=== PATIENT | female | born 1940 | race Caucasian/White ===

== ENCOUNTER 2019-04-15 02:38 | Observation (INO) | payer OTHER ==
[~2019-04-15] VITALS: Ht 154.9 cm; Wt 63.5 kg
[2019-04-15 02:47] VITALS: Ht 154.9 cm; Wt 63.5 kg
--- NOTE | 2019-04-15 03:16 | NUR ---
PT PRESENTS TO ED WITH C/O VOMITING TODAY. PT STATES THAT SHE HAS BEEN FEELING GENERALLY UNWELL FOR 3 WKS SINCE HER PSYCHIATRIST PUT HER ON 3 NEW MEDICATIONS FOR ANXIETY. PT STATES THAT TODAY EVERY TIME SHE TRIED TO TAKE HER MEDICATION SHE VOMITED. PT STATES TO MID ABDOMINAL PAIN, AND BURNING WHEN SHE URINATES. PT DENIES DIARRHEA. PT AMBULATED WITH STEADY GAIT TO PROVIDE URINE SPECIMEN. PT AOX4, RESP EVEN AND UNLABORED, NO ACUTE DISTRESS NOTED. PT SIGNIFICANT OTHER AT BEDSIDE.
[2019-04-15 03:59] LABS: microscopic required? YES; urine erythrocyte 1+ (NEGATIVE)
[2019-04-15 04:00] LABS: BASOPHIL % 0.2 % (0-2); PLATELET COUNT 331 x10^3mcL (130-400); RED CELL DISTRIBUTION WIDTH 12.7 % (11.5-14.5)
[2019-04-15 04:02] LABS: CALCIUM 8.5 mg/dL (8.5-10.1); CARBON DIOXIDE 24.2 mmol/L (21-32); CHLORIDE SERUM 93 mmol/L (98-107); CREATININE SERUM 0.7 mg/dL (0.6-1.0); GLUCOSE SERUM 136 mg/dL (74-106); POTASSIUM SERUM 3.9 mmol/L (3.5-5.1); SODIUM SERUM 126 mmol/L (136-145)
[2019-04-15 04:06] LABS: ALBUMIN 3.7 g/dL (3.4-5.0); ALKALINE PHOSPHATASE 84 U/L (46-116); ALT/SGPT 22 U/L (14-59); AST/SGOT 15 U/L (15-37); BILIRUBIN TOTAL 0.69 mg/dL (0.20-1.00); TOTAL PROTEIN, SERUM 7.2 g/dL (6.4-8.2)
--- NOTE | 2019-04-15 04:11 | NUR ---
PT RESTING IN A POSITION OF COMFORT, AOX4, RESP EVEN AND UNLABORED, NO ACUTE DISTRESS NOTED. PT ON FULL CM.
[2019-04-15] MEDS ORDERED: LOVASTATIN40 MG PO (04:59)
[2019-04-15] MEDS ORDERED: TRILEPTAL150 MG PO (05:01)
[2019-04-15] MEDS ORDERED: GABAPENTIN100 M2 PO (05:01)
[2019-04-15] MEDS ORDERED: CLONAZEPAM0.5 MG PO (05:01)
[2019-04-15] MEDS ORDERED: LEVOTHYROXINE0.1 M2 PO (05:01)
[2019-04-15] MEDS ORDERED: NOR10 PO (05:02)
[2019-04-15] MEDS ORDERED: LOSARTAN POTASS1 TA8 PO (05:02)
--- NOTE | 2019-04-15 05:03 | NUR ---
PER VERENICE RICHARDSON FOR PT TO TAKE HOME LEVOTHYROXINE.
--- NOTE | 2019-04-15 05:47 | NUR ---
PT REPORT CALLED TO APRIL MAKI TO ASSUME PT CARE.
--- NOTE | 2019-04-15 06:10 | NUR ---
PT TRANSFERRED TO 219A BY REYES BY MYSELF AND DILSHAD MAKI. PT ON CM FOR TRANSFER. PT AOX4, RESP EVEN AND UNLABORED, NO ACUTE DISTRESS NOTED. PT ACCEPTED BY APRIL MAKI TO ASSUME PT CARE. PT AMBULATED FROM [facility] TO BED WITHOUT INCIDENT.
[2019-04-15 06:37] VITALS: BP 142/59
--- NOTE | 2019-04-15 07:30 | NUR ---
RECEIVED PATIENT ALERT/ORIENTED X4. C/O NAUSEA AND VOMITING SINCE YESTERDAY. TELE#20, SR; HR 75. NO RESP DISTRESS ON RA. O2 SAT 98% ON RA. DENIED ABD PAIN. BUT C/O NAUSEA. HAD DIARRHEA X4 LAST NIGHT. VOID VIA BRP, C/O BURNING OF URINATION. IVF OF NS 80CC/HR. IV SITE TO LAC INTACT. AMBULATORY. CALL LIGHT IN REACH.
--- NOTE | 2019-04-15 08:17 | NUR ---
C/O NAUSEA. HAD 30% OF REGULAR DIET BREAKFAST. ZOFRAN 4MG IVP GIVEN. CONTINUE MONITOR.
[2019-04-15 09:10] VITALS: BP 151/54
--- NOTE | 2019-04-15 09:25 | NUR ---
PATIENT NAUSEA AND VOMITED 150CC OF BREAKFAST. ORAL MEDS HOLD AND PAGED DR. FREIRE.
--- NOTE | 2019-04-15 09:42 | NUR ---
ZOFRAN 4MG IVP GIVEN AT 0817; PATIENT STILL NAUSEA AND VOMITING. DR. FREIRE CALLED. DR. FREIRE SAID KEPT B/P OF THIS PATIENT OVER 240 mmHG. I REPORTED TO DR. FREIRE WITH PATIENT'S B/P = 151/54 NOW. HE ANSWERED B/P =151 WAS TOO LOW FOR THIS PATIENT. PATIENT WAS VOMITING AND UNABLE TO TAKE ORAL MEDS. DR. FREIRE AWARE OF.
--- NOTE | 2019-04-15 11:16 | NUR ---
PATIENT HAVING INTRACTABLE N/V. DENIED ABD PAIN. NEW ORDER OF REGLAN 10MG IVP GIVEN. CONTINUEONITOR.
--- NOTE | 2019-04-15 12:09 | NUR ---
STATED NAUSEA SUBSIDING. NO VOMITING FOR 1 HR. ORAL MEDS GIVEN.
[2019-04-15 12:41] VITALS: BP 154/61
--- NOTE | 2019-04-15 13:00 | NUR ---
DR. LÓPEZ CAME TO SEE PATIENT. NEW ORDER WRITTEN.
--- NOTE | 2019-04-15 15:33 | NUR ---
HAD 20% OF FULL LIQUID DIET LUNCH. PATIENT HAD NAUSEA/ VOMITED AGAIN. 400CC MEASURED. PHENERGAN 12.5MG IVP GIVEN.
--- NOTE | 2019-04-15 15:37 | NUR ---
SLEEPING NOW. CONTINUE MONITOR.
[2019-04-15 17:19] VITALS: BP 150/58
--- NOTE | 2019-04-15 18:07 | NUR ---
PATIENT SLEEPING, AROUSABLE. NO N/V AFTER PHENERGAN GIVEN. IVF INFUSING WELL. VOID X4 VIA BRP. NO BM THIS SHIFT. ENDORSED CARE TO NOC NURSE.
--- NOTE | 2019-04-15 18:54 | NUR ---
PATIENT REFUSED DINNER. STATED STILL HAD NAUSEA, NO VOMITING AFTER PHENERGAN GIVEN. RANDOM BLOOD SUGAR CHECK =124. ENDORSED CARE TO [facility] NURSE.
--- NOTE | 2019-04-15 19:20 | NUR ---
RECEIVED PT LAYING IN BED, NO ACUTE DISTRESS OBSERVED, DENIES PAIN OR DISCOMFORT AT THIS TIME. ABD ROUND AND SOFT WITH ACITVE BOWEL SOUNDS, C/O INTERMITTENT N/V, ADMITS TO DIARRHEA. UA (+) UTI, PT ADMITS TO DYURIA AND BURNING UPON URINATION. AA/OX4, ABLE TO MAKE NEEDS KNOWN, SPEECH CLEAR AND APPROPRIATE. NSR TO TELE #20, NO CP. PULSES PRESENT AND EQUAL THROUGHOUT, NO EDEMA. BREATHING ON RA, EVEN AND UNLABORED, NO SOB OR DYSPNEA OBSERVED. AMBULATORY AND ABLE TO REPOSITION SELF IN BED. IV TO LAC IN PLACE, DRY, PATENT, INTACT, AND INFUSING IVF WELL, NO PAIN, REDNESS OR SWELLING NOTED. COMFORT AND SAFETY MEASURES IN PLACE. ALL NEEDS ASSESSED AND ATTENDED TO. CALL LIGHT WITHIN REACH. WILL CONTINUE TO MONITOR
[2019-04-15 20:37] VITALS: BP 123/50
--- NOTE | 2019-04-16 00:24 | NUR ---
REPORT GIVEN TO GLYNN LOCKHART, TO RESUME CARE OF PT. ALL QUESTIONS AND CONCERNS ADDRESSED. ALL CARES ENDORSED
--- NOTE | 2019-04-16 00:34 | NUR ---
REPORT RECEIVED FROM GLYNN BECKFORD. PATIENT WAS SEEN AND IS RESTING COMFORTABLY IN BED WITH EYES CLOSED. BREATHING EVEN AND UNLABORED ON ROOM AIR. NO DISTRESS NOTED. NO S/S OF PAIN NOTED. IV TO THE LAC INFUSING NS WELL. PATENT AND INTACT. NO REDNESS OR SWELLING NOTED. ON TELE #20 WITH NSR AT 64. SEIZURE PRECAUTIONS IN PLACE. COMFORT AND SAFETY MEASURES IN PLACE. BED IS LOCKED AND IN THE LOWEST POSITION. SIDE RAILS UP X2. CALL LIGHT IS WITHIN REACH. WILL CONTINUE TO MONITOR.
--- NOTE | 2019-04-16 02:42 | NUR ---
PATIENT RESTING IN BED WITH EYES CLOSED ON LEFT SIDE. NO DISTRESS NOTED. BREATHING EVEN AND UNLABORED ON ROOM AIR. NO SOB OR RESP DISTRESS NOTED. NO S/S OF PAIN. IVF INFUSING WELL. SAFETY MEASURE IN PLACE. CALL LIGHT IS WITHIN REACH. WILL CONTINUE TO MONITOR
[2019-04-16 05:04] VITALS: BP 137/56
--- NOTE | 2019-04-16 05:16 | NUR ---
PATIENT RESTING IN BED WITH EYES CLOSED AT THIS TIME. NO ACUTE CHANGES NOTED. BREATHING EVEN AND UNLABORED ON ROOM AIR. NO SOB OR RESP DISTRESS NOTED. NO C/O PAIN THROUGHOUT THE NIGHT. NAUSEA RESOLVED AT THIS TIME. PATIENT HAD DSYURIA AND BRUNING SENSATION UPON URINATION. VOIDED X1. NO BM. PATIENT REPORTS SHE HAD A POOR APPETITE AND ISN'T EATING WELL. SEIZURE PRECAUTIONS IN PLACE. NO SEIZURES NOTED. IV TO THE LAC INFUSING NS WELL AT 35ML/HR. SAFTEY PRECAUTIONS IN PLACE. CALL LIGHT IS WITHIN REACH. WILL CONTINUE TO MONITOR AND ENDORSE CARE TO DAY SHIFT RN
--- NOTE | 2019-04-16 06:32 | NUR ---
PATIENT VOIDED. PATIENT STATES DSYURIA AND BURNING IMPORVED SINCE ADMISSION. URINE IS YELLOW. PATIENT STATES NAUSEA IMPROVED WELL. ASKED IF SHE WILL BE GETTIGN A REGUALR DIET FOR BREAKFAST. EDUCATED PATIENT THAT WE NEED TO MONITOR HOW SHE CAN TOLERATE HER FULL LIQUID DIET BEFORE ADVANCING. PATIENT VERBALIZED UNDERSTANDING. WILL ENDORSE CARE TO DAY SHIFT RN
[2019-04-16 06:50] LABS: BASOPHIL % 0.5 % (0-2); PLATELET COUNT 250 x10^3mcL (130-400); RED CELL DISTRIBUTION WIDTH 13.4 % (11.5-14.5)
[2019-04-16 06:56] LABS: CARBON DIOXIDE 22.6 mmol/L (21-32); CHLORIDE SERUM 100 mmol/L (98-107); CREATININE SERUM 0.6 mg/dL (0.6-1.0); GLUCOSE SERUM 94 mg/dL (74-106); MAGNESIUM 2.2 mg/dL (1.8-2.4); POTASSIUM SERUM 3.5 mmol/L (3.5-5.1); SODIUM SERUM 132 mmol/L (136-145)
--- NOTE | 2019-04-16 07:10 | NUR ---
RECEIVED PATIENT AWAKE/ALERT IN BED ON THE PHONE, C/O PAIN. DENIES NAUSEA AT THIS TIME. TELE #20 SR W/ HR 67 NOTED. IV TO LAC INTACT AND INFUSING WELL. CALL LIGHT WITHIN REACH.
--- NOTE | 2019-04-16 08:55 | NUR ---
PATIENT RESTING IN BED NO COMPLAIN, ALL PO MEDS ADMINISTERED, DR. FREIRE CAME TO SEE PATIENT AND DISCUSS POC, PLAN ADV DIET TO REGULAR AND IF TOLERATED WILL D/C HOME.
[2019-04-16 08:58] VITALS: BP 152/60
[2019-04-16] MEDS ORDERED: CLONAZEPAM0.5 MG PO (09:01)
--- NOTE | 2019-04-16 09:55 | NUR ---
PATIENT CALL REPORT IV SITE SWELLING AFTER COMING BACK FROM BATHROOM, RN ASSESS SITE NOTED SWELLING AND ERYTHEMA; REMOVED IV TO LAC W/ CATHETER INTACT APPLIED GAUZES TO SITE W/ BANDAID COVER. ICE PACK APPLIED TO SITE AND ELEVATED ARM ON PILLOW. CONT TO MONITOR.
--- NOTE | 2019-04-16 11:54 | NUR ---
PATIENT SAT UP AT SIDE OF BED NO COMPLAINS, GAVE DISCHARGE INSTRUCTIONS AND PRESCRIPTION FOR CLONIPIN, AND EXPLAINED HOME MEDS TO CONTINUE AND WHAT TO STOP. PATIENT VERBALIZE UNDERSTAND. NEEDS MET. CONT TO MONITOR.
[2019-04-16 12:30] VITALS: BP 148/51
--- NOTE | 2019-04-16 12:43 | NUR ---
PATIENT SAT UP AT SIDE OF BED EATING HER LUNCH REGULAR DIET, NO C/O NAUSEA. WILL EVAL AFTER PATIENT FINISH HER LUNCH. NEURONTIN PO ADMINISTERED. NEEDS MET. CALL LIGHT WITHIN REACH.
--- NOTE | 2019-04-16 14:21 | NUR ---
PATIENT WAS WHEEL OUT BY [employer] WITH FAMILY [employer], ALL BELONGINGS WITH PATIENT, TOLERATED REGULAR DIET NO NAUSEA. TELE #20 RETURN TO [facility].
== END 2019-04-16 14:15 | disposition home or self-care (01) | DRG 644 ==
LOC: ED 02:38 → DU 04:52
PROVIDERS: Emergency Medicine; ADMIT Internal Medicine Pulmonary Disease
DX: E22.2 Syndrome of inappropriate secretion of antidiuretic hormone (principal); N39.0 Urinary tract infection, site not specified; T43.205A Adverse effect of unspecified antidepressants, initial encounter; T43.95XA Adverse effect of unspecified psychotropic drug, initial encounter; B96.20 Unspecified Escherichia coli [E. coli] as the cause of diseases classified elsewhere; E86.0 Dehydration; R11.2 Nausea with vomiting, unspecified; T42.1X5A Adverse effect of iminostilbenes, initial encounter; F41.9 Anxiety disorder, unspecified; I10 Essential (primary) hypertension; E78.5 Hyperlipidemia, unspecified; E03.9 Hypothyroidism, unspecified; G40.909 Epilepsy, unspecified, not intractable, without status epilepticus; Z68.26 Body mass index [BMI] 26.0-26.9, adult; Y92.009 Unspecified place in unspecified non-institutional (private) residence as the place of occurrence of the external cause
CPT/HCPCS: 82962; G0378; J0744; J1956; J2060; J2405; J2550; J2765; J7030; Q0092

== ENCOUNTER 2019-11-16 18:39 | Emergency (ER) | payer OTHER ==
[~2019-11-16] VITALS: Ht 154.9 cm; Wt 63.5 kg
[~2019-11-16 18:39] MED LIST: CLONAZEPAM0.5 MG PO; GABAPENTIN100 M2 PO; LEVOTHYROXINE0.1 M2 PO; LOSARTAN POTASS1 TA8 PO; LOVASTATIN40 MG PO; NOR10 PO; TRILEPTAL150 MG PO
[2019-11-16 18:50] VITALS: Ht 154.9 cm; Wt 63.5 kg
[2019-11-16 20:13] VITALS: BP 157/80
== END 2019-11-16 20:05 | disposition home or self-care (01) ==
LOC: ED 18:39
DX: R25.1 Tremor, unspecified (principal); F41.9 Anxiety disorder, unspecified; I10 Essential (primary) hypertension; E78.00 Pure hypercholesterolemia, unspecified; Z90.710 Acquired absence of both cervix and uterus; Z90.49 Acquired absence of other specified parts of digestive tract; Z98.890 Other specified postprocedural states; Z85.3 Personal history of malignant neoplasm of breast; Z88.0 Allergy status to penicillin
CPT/HCPCS: J2060